=== PATIENT | female | born 1990 | race Caucasian/White ===

== ENCOUNTER 2020-02-08 12:09 | Outpatient (RCR) | payer BC, SELFPAY ==
--- NOTE | 2020-02-08 12:10 | PC.NURSE ---
IN 1100 OUT 1205 HISTORY: Pt. delivered at 39 weeks. had no complications after delivery. Mother had no complications after delivery. Infant is now 8 days old. Infant appears to be well cared for. This is mother's first child. Infant has been seen by ICP as scheduled. last seen by ICP on 02/05/2020. Mother reports: Mother had latch issues while in the hospital and began nipple shield use. Shield assisted with maintaining a deep latch. They went home exclusive . began with fussiness and refusing to latch the first day home. Mother began bottle feeding 2 oz per feeding, 1oz EBM and 1 oz formula. Mother has made several attempts to return to breast. will make weak attempts and latch a few sucks and stop with crying. Mother is waking to feed every 2 hours and reports is freq. sleepy and difficult to bottle feed. Mother is pumping 1 oz each session several times per day. Mother wishes: For to breastfeed. Currently at 8 wets per day and 3 yellow seedy stools per day. weight: 6#14 Discharge weight: 6#12 Last Weight: 7#1 Pre feeding weight: 3214 Post feeding weight: 3224 OBSERVATION: Discussed regular pumping after each feeding for 10 minutes to assist with stimulation of milk supply. Discussed nipple shield precautions and possible complications. Instructions given on application and cleaning of shield. Patient able to return demonstration on proper application of shield. With shield in place. Consulted with patient, reviewed infant feeding cues, frequencies, duration of feedings, feeding elimination flow sheet, and signs of adequate intake. Demonstrated stimulation techniques to wake for feeding. Assisted with to breast. Reviewed positioning/alignment in cross cradle, holding breast in U hold and guided asymmetrical latch on. Discussed rational for each. Small amount of formula given to entice infant to feed. was able to latch correctly. Infant nursed eagerly with steady draws and occasional swallowing for short bursts followed with long pausing. Advised mother to stimulate to keep awake and nursing. Infant will drift off to sleep quickly. He did respond to stimulation with bursts of suckling. Reviewed signs of a correct latch, effective nursing and suck swallow ratio. Mother was able to switch to other breast independently. Advised to allow infant to sleep for three hours then wake for feeding, or feed before if feeding cues noted. Suggested to limit time to each breast to 10-15 minutes. Discussed infant may want to increase supplement per feeding, suggested she increase by 10 mls. Stressed pumping after each feeding to assist with increasing supply. PLAN: Mother will follow above feeding plan using techniques for deeper latch and stimulating while at breast to keep awake and nursing effectively for increased intake and stimulation of milk supply. Mother will increase pumping regularly to increase milk supply Mother will call with further questions or concerns. Follow up phone call scheduled for 02/12/2020.
--- NOTE | 2020-02-26 12:00 | PC.NURSE ---
IN 1105 OUT 1155 HISTORY: Pt. delivered at [facility] at 40 weeks. had no complications after delivery. Mother had no complications after delivery. is now 30+ days/weeks old. Infant appears to be well cared for. has been seen by ICP as scheduled. Infant last seen by ICP on 02/20/2020. Mother reports: Infant was latching well while in the hospital. Within a few days at home began to refuse to latch and was on and off during feedings. Mother introduced the nipple shield with a friends advised. will latch with the shield and will feed up to 40 minutes, infant is not satisfied after , mother will then supplement 1 oz of expressed milk. sleepy while at breast, having to wake freq during the feeding and is fussy between feedings. Mother reports he never acts satisfied. Mother also reports infant is slow to begin the bottle and is very sloppy while feeding with a fair amount of bottle running out while feeding. Infant breastfeeds every 1-1.5 hours during the day and 2-3 hours during the night. Mother is pumping 1-1.5 oz after 15 minutes of pumping after all feedings using a double electric stimulation pump. Mother is tearful and reports she is very tired and considering switching to pumping and bottle feeding. Mother wishes: To increase milk supply and have infant more consistent with . Currently at 8 wets per day and 2-3 yellow seedy stools per day. weight: 8#6 Discharge weight: 7#9 Last Weight: 8#4 Pre feeding weight: 3878 Post feeding weight: 3893 OBSERVATION: Mother has marked breast asymmetry. Discussed how asymmetry may impact breastmilk production. Infant appears to have a possible tight frenulum. Mother is using the 24mm nipple shield the correct size for , she is able to apply shield correctly. Using the cross cradle position mother latches shallow to shield. eagerly begins to nurse with a short chewy suck. Assisted with cross cradle, reviewing positioning/alignment, holding breast using U hold, and asymmetrical latch on. was able to latch correctly. nursed eagerly, with bursts of steady draws with more short chewy sucks, occasional swallowing noted. Reviewed signs of a correct latch, effective nursing and suck swallow ratio. has freq long pausing, advised to stimulate to entice into an effective suck pattern. Infant will begin suckling with short burst of draws and return to pausing and short chewy suckling. When questioned how long infant actually breastfeeds the 40 minutes mother reports at breast is actually 10-20 minutes, with most of suckling the short chewy suck. Worked with bottle feeding. Mother allows to have the top of the nipple only and does not have take full nipple in while feeding. Mother uses a large base nipple at home and infant only takes in the tip, none of the large base. Discussed how this may impact suck and possible reason for the amount running out while feeding. PLAN: Suggested mother wake to feed by three hours, limit time to breast to 15-20 minutes on one breast, followed with 2 oz of EBM/formula supplementation and mother then pump for 15 minutes. Increase supplementation as infant requires to be satisfied at least 2.5 hours between feedings. Work with deep latch and keeping with long draws with an effective suck pattern. Plan is to have infant rested and willing to work with effective suck pattern while at the breast. Mother will have rest and to allow refill to increase milk supply. Follow up phone call scheduled for 02/28/2020
== END 2020-04-17 08:30 | disposition home or self-care (01) ==
LOC: ANHOBOP 12:09
PROVIDERS: Visit Provider Pediatrics
DX: Z39.1 Encounter for care and examination of lactating mother (principal)
CPT/HCPCS: 99202; G0463